=== PATIENT | male | born 1995 | race Caucasian/White ===

== ENCOUNTER → 2021-05-09 | Outpatient (CLI) | payer OTHER ==
[2014-05-28 12:12] VITALS: BP 128/60
[~2021-05-09] MED LIST: HYDR-3068 PO; IBUP200T44 PO
[2021-05-09 12:04] LABS: BASO % 1 % (0-3); EOS # 0.1 x10^3/uL (0.0-0.7); EOS % 1 % (0-3); HEMATOCRIT 43.1 % (39.0-53.0); HEMOGLOBIN 15.2 g/dL (13.0-17.5); LYMPH # 2.1 x10^3/uL (1.0-4.8); LYMPH % 37 % (24-48); MEAN CORPUSCULAR HEMOGLOBIN 32 pg (25-35); MEAN CORPUSCULAR HGB CONC 35 g/dL (31-37); MEAN CORPUSCULAR VOLUME 90 fL (79-100); MONO # 0.4 x10^3/uL (0.0-1.1); MONO % 8 % (0-9); NEUT # 3.1 x10^3/uL (1.8-7.7); NEUT % 53 % (31-73); PLATELET COUNT 203 x10^3/uL (140-400); RED BLOOD COUNT 4.77 x10^6/uL (4.30-5.70); RED CELL DISTRIBUTION WIDTH 12.6 % (11.5-14.5); WHITE BLOOD COUNT 5.7 x10^3/uL (4.0-11.0)
[2021-05-09 12:34] LABS: ALBUMIN 4.3 g/dL (3.4-5.0); ALBUMIN/GLOBULIN RATIO 1.4 (1.0-1.7); ALK PHOS 74 U/L (46-116); ALT (SGPT) 23 U/L (16-63); ANION GAP 7 (6-14); AST (SGOT) 14 U/L (15-37); BLOOD UREA NITROGEN 14 mg/dL (8-26); BUN/CREATININE RATIO 18 (6-20); CALCIUM 8.8 mg/dL (8.5-10.1); CARBON DIOXIDE 29 mmol/L (21-32); CHLORIDE 104 mmol/L (98-107); CHOLESTEROL 146 mg/dL (0-200); CREATININE 0.8 mg/dL (0.7-1.3); GFR 117.8; GLUCOSE 90 mg/dL (70-99); HDLC 71 mg/dL (40-60); LDLC 68 mg/dL (0-100); POTASSIUM 4.8 mmol/L (3.5-5.1); SODIUM 140 mmol/L (136-145); TOTAL BILIRUBIN 0.7 mg/dL (0.2-1.0); TOTAL PROTEIN 7.4 g/dL (6.4-8.2); TRIGLYCERIDES 34 mg/dL (0-150); URIC ACID 5.5 mg/dL (3.5-7.2); VLDLC 7 mg/dL (0-40)
[2021-05-09 12:35] LABS: C-REACTIVE PROTEIN < 0.5 mg/L (0-3.3); CHOLESTEROL/HDL RATIO 2.1
[2021-05-09 22:08] LABS: TESTOSTERONE TOTAL 634 ng/dL (264-916)
[2021-05-10 00:10] LABS: HEMOGLOBIN A1C 4.5 % (4.8-5.6)
== END ==
LOC: LAB 11:02
PROVIDERS: ATTEND Internal Medicine Pulmonary Disease
DX: D51.9 Vitamin B12 deficiency anemia, unspecified (principal); R73.03 Prediabetes; E78.49 Other hyperlipidemia; R06.00 Dyspnea, unspecified; G30.9 Alzheimer's disease, unspecified; R07.9 Chest pain, unspecified; E03.9 Hypothyroidism, unspecified
CPT/HCPCS: 36415; 80053; 80061; 82306; 82652; 83036; 83695; 84403; 84443; 84550; 85025; 86140